=== PATIENT | male | born 1945 | race Caucasian/White ===

== ENCOUNTER 2017-01-05 21:42 | Emergency (ER) | payer OTHER ==
[2017-01-05 21:53] VITALS: BP 164/81
--- NOTE | 2017-01-05 22:23 | EDM.PDOC ---
ED HPI GENERAL MEDICAL PROBLEM - General Chief Complaint: Lower Extremity Injury/Pain Stated Complaint: LEG PAIN Time Seen by Provider: 01/05/17 22:12 - History of Present Illness INITIAL COMMENTS - FREE TEXT/NARRATIVE: 71-year-old male presents emergency room with leg pain. This is been going on for about a week and a half or so. Patient got bit by some sort of insect he thinks. He was seen at the [facility] in [place] started on antibiotic he doesn't know what. This was not getting better he was seen at the [facility] emergency room about a week ago started on another antibiotic he's finished this he's not sure which antibiotic it was. Patient denies any fevers chills. But he is having worsening pain around his left hip. Patient multiple suspected bug bites on his arms and is on his legs but somewhat on his left leg it seems to be bothering him the most it has a dark center to it. He is uncertain if it was a tick or spider the multiple sites certainly does not favor a tick, however multiple bites by multiple insects cannot be excluded either. Patient has not had any fevers or chills his pain is worse on the outside of his left hip at this point. He tried a couple of Advil a couple hours ago he has not had much improvement from this Left Hip Pain Score (Numeric/FACES): 8 - Related Data Allergies Allergy/AdvReac Type Severity Reaction Status Date / Time atenolol Allergy Hives Verified 01/05/17 21:53 bee venom protein (honey bee) Allergy Rash Verified 01/05/17 21:53 morphine Allergy Hives Verified 01/05/17 21:53 Home Meds: Home Meds Aspirin [Ecotrin] 81 mg PO DAILY 03/09/16 [History] Insulin Glargine,Hum.Rec.Anlog [Lantus Solostar] 50 units SQ BID 03/09/16 [ History] Metoprolol Succinate [Toprol XL 50mg] 50 mg PO DAILY 03/09/16 [History] Ranitidine [Zantac] 150 mg PO DAILY 03/09/16 [History] metFORMIN [Glucophage XR] 4 tab PO DAILY 03/09/16 [History] Doxycycline [Vibramycin] 100 mg PO BID #14 cap 01/06/17 [Rx] Past Medical History Cardiovascular History: Reports: Afib, CAD, Heart Failure, High Cholesterol, Hypertension, NC Respiratory History: Reports: SOB Gastrointestinal History: Reports: Colon Polyp Genitourinary History: Reports: BPH, Chronic Renal Insuffiency Psychiatric History: Reports: Anxiety Endocrine/Metabolic History: Reports: Diabetes, Type II - Past Surgical History Cardiovascular Surgical History: Reports: Other (See Below) Social & Family History - Family History Family Medical History: Noncontributory - Tobacco Use Smoking Status *Q: Never Smoker Second Hand Smoke Exposure: No - Recreational Drug Use Recreational Drug Use: No - Living Situation & Occupation Living situation: Reports: , Alone Occupation: Employed Review of Systems - Review of Systems Review Of Systems: See Below Constitutional: Reports: No Symptoms Eyes: Reports: No Symptoms Ears: Reports: No Symptoms Nose: Reports: No Symptoms Mouth/Throat: Reports: No Symptoms Respiratory: Reports: No Symptoms Cardiovascular: Reports: No Symptoms GI/Abdominal: Reports: No Symptoms Genitourinary: Reports: No Symptoms Musculoskeletal: Reports: Other (Significant for left hip pain) Skin: Reports: Other (He has multiple suspected insect bite or sting de jesus) Neurological: Reports: No Symptoms ED EXAM, GENERAL - Physical Exam Exam: See Below Exam Limited By: No Limitations General Appearance: Alert, No Apparent Distress Head: Atraumatic, Normocephalic Neck: Normal Inspection, Supple, Non-Tender, Full Range of Motion. No: Lymphadenopathy (L), Lymphadenopathy (R) Respiratory/Chest: No Respiratory Distress, Lungs Clear, Normal Breath Sounds Cardiovascular: Regular Rate, Rhythm, No Edema, No Murmur GI/Abdominal: Normal Bowel Sounds, Soft, Non-Tender Back Exam: Normal Inspection. No: CVA Tenderness (L), CVA Tenderness (R), Decreased Range of Motion, Muscle Spasm, Vertebral Tenderness Extremities: Other (Normal pulses bilateral lower extremities no obvious deformity. He really has no significant palpation abnormalities in the lower extremities below the knee on his left side other than some proximal medial pain and his in involving the medial head of the muscles he has no redness or swelling here the suspected insect bite of concern is lower and lateral. He has no evidence of redness or swelling here. At the greater trochanter he has some discomfort. This extends down about a third the way down his hip this does not cross over his leg towards the medial side of his knee and does not extend completely down to his knee on the lateral side.) Course - Vital Signs Last Recorded V/S: Last Vital Signs Temp 36.6 C 01/05/17 21:50 Pulse 93 01/05/17 21:50 Resp 16 01/05/17 21:50 BP 164/81 H 01/05/17 21:50 Pulse Ox 96 01/05/17 21:50 - Orders/Labs/Meds Labs: Laboratory Tests 01/05/17 01/05/17 01/05/17 Range/Units 23:35 23:35 23:35 WBC 9.40 H (4.23-9.07) K/mm3 RBC 4.55 L (4.63-6.08) M/mm3 Hgb 13.8 (13.7-17.5) gm/L Hct 39.2 L (40.1-51.0) % MCV 86.2 (79.0-92.2) fl MCH 30.3 (25.7-32.2) pg MCHC 35.2 (32.2-35.5) g/dl RDW Std Deviation 44.7 H (35.1-43.9) fL Plt Count 160 L (163-337) K/mm3 MPV 11.4 (9.4-12.3) fl Neutrophils % (Manual) 45 (40-60) % Band Neutrophils % 0 (0-10) % Lymphocytes % (Manual) 27 (20-40) % Atypical Lymphs % 9 % Monocytes % (Manual) 8 (2-10) % Eosinophils % (Manual) 9 H (0.8-7.0) % Basophils % (Manual) 2 H (0.2-1.2) Platelet Estimate Decreased Plt Morphology Comment See note Polychromasia 1+ slight Microcytosis 1+ slight Spherocytes Few RBC Morph Comment Not Reportable ESR 10 (0-15) mm/hr D-Dimer, Quantitative 0.21 (0.19-0.59) mg/L C-Reactive Protein (<1.0) mg/dL 01/05/17 Range/Units 23:35 WBC (4.23-9.07) K/mm3 RBC (4.63-6.08) M/mm3 Hgb (13.7-17.5) gm/L Hct (40.1-51.0) % MCV (79.0-92.2) fl MCH (25.7-32.2) pg MCHC (32.2-35.5) g/dl RDW Std Deviation (35.1-43.9) fL Plt Count (163-337) K/mm3 MPV (9.4-12.3) fl Neutrophils % (Manual) (40-60) % Band Neutrophils % (0-10) % Lymphocytes % (Manual) (20-40) % Atypical Lymphs % % Monocytes % (Manual) (2-10) % Eosinophils % (Manual) (0.8-7.0) % Basophils % (Manual) (0.2-1.2) Platelet Estimate Plt Morphology Comment Polychromasia Microcytosis Spherocytes RBC Morph Comment ESR (0-15) mm/hr D-Dimer, Quantitative (0.19-0.59) mg/L C-Reactive Protein < 0.2 (<1.0) mg/dL - Re-Assessments/Exams Free Text/Narrative Re-Assessment/Exam: 01/05/17 23:01 At this point I'm trying to get old records from [facility] to see if they can fill in some of the blanks as to what he's had done at this hour getting anything from the [facility] would be impossible. 01/05/17 23:22 Old records reviewed from [facility] he was seen there on 75. At that time he was taking Keflex and Bactrim DS he had a MRSA screen done after evaluation was done it was thought that his lower leg pain was due to some swelling there he was advised to start stocking therapy patient states this did not help the [facility] this and it is unclear to me if he was started on antibiotics again at that point. At this point patient has pain still in his lower leg away from where the bite is more in the medial calf. And he has is pain along the proximal iliotibial band. At this point we'll check d-dimer CBC inflammatory markers. 01/06/17 01:24 D-dimer inflammatory markers CBCs negative/unrevealing. Patient will be discharged is advised to use Tylenol however he says he doesn't do well on Tylenol. He is hypertensive Advil can be a little problem sedation minimizes dosing. He'll be started on doxycycline 100 mg twice a day for a week Departure - Departure Time of Disposition: 01:26 Disposition: Home, Self-Care 01 Clinical Impression: Trochanteric bursitis, left hip, Insect bite - Discharge Information Prescriptions: Doxycycline [Vibramycin] 100 mg PO BID #14 cap Forms: ED Department Discharge Additional Instructions: Return to the emergency room with any questions problems or worsening symptoms. He is given a prescription for doxycycline take one twice daily for 1 week and until all the medicine is gone. Avoid sun exposure while taking this medication. Advil one every 8 hours with food. Drink plenty of fluids with this. [facility] for recheck your blood pressure and to see how you are doing.
== END 2017-01-06 01:40 | disposition home or self-care (01) ==
LOC: JD.ED 21:42
DX: S70.262A Insect bite (nonvenomous), left hip, initial encounter (principal); M70.62 Trochanteric bursitis, left hip; I48.91 Unspecified atrial fibrillation; E11.22 Type 2 diabetes mellitus with diabetic chronic kidney disease; I13.0 Hypertensive heart and chronic kidney disease with heart failure and stage 1 through stage 4 chronic kidney disease, or unspecified chronic kidney disease; I50.9 Heart failure, unspecified; N18.9 Chronic kidney disease, unspecified; I25.2 Old myocardial infarction; Z91.030 Bee allergy status; Z79.4 Long term (current) use of insulin; Z79.82 Long term (current) use of aspirin; Z79.84 Long term (current) use of oral hypoglycemic drugs; I25.10 Atherosclerotic heart disease of native coronary artery without angina pectoris; W57.XXXA Bitten or stung by nonvenomous insect and other nonvenomous arthropods, initial encounter; Z88.5 Allergy status to narcotic agent; Z88.8 Allergy status to other drugs, medicaments and biological substances
CPT/HCPCS: 36415; 85025; 85379; 85652; 86140; 99283; 99284

== ENCOUNTER 2019-05-02 08:05 | Emergency (ER) | payer OTHER, MEDICARE ==
[2019-05-02 08:14] VITALS: BP 188/95; PULSE 88
--- NOTE | 2019-05-02 08:35 | EDM.PDOC ---
ED HPI GENERAL MEDICAL PROBLEM - General Chief Complaint: Gastrointestinal Problem Stated Complaint: CONSTIPATION Time Seen by Provider: 05/02/19 08:15 Source of Information: Reports: Patient History Limitations: Reports: No Limitations - History of Present Illness INITIAL COMMENTS - FREE TEXT/NARRATIVE: Mr. Santillan is a pleasant 73-year-old man who states that he was recently hospitalized at [facility] on the of this month, and again on the , for a "esophageal blockage". He states that he was scoped, and that nothing was found, but there was some sort of a narrowing. I believe the patient is describing a Schatzki ring. He was also found to be in atrial fibrillation. He was started on Eliquis, carvedilol, and pantoprazole. The patient now presents to the ED stating that he has been constipated since 18 :00 last night. While he purchased a stool softener, he did not take it, and has not taken any other medications to try to treat his symptoms prior to coming to the ED. He believes that his new medications are responsible for his constipation, as he does not ordinarily suffer from constipation. The patient also mentioned, in passing, that he has been only able to dribble urine since 18 :00 last night, as well. He has a history of BPH, treated with finasteride. He reports chills, but has not had a fever. He has had nausea, but no emesis. The patient last ate around 05:00. The patient's PCP is at the [place], although he also sees Dr. Ernie Underwood, in [place]. His Urologist is Dr. Jackie Wolff, at the [facility]. He received an influenza vaccine yesterday. Abdomen Pain Score (Numeric/FACES): 5 - Related Data Allergies Allergy/AdvReac Type Severity Reaction Status Date / Time atenolol Allergy Hives Verified 05/02/19 08:18 bee venom protein (honey bee) Allergy Rash Verified 05/02/19 08:18 insulin isophane (NPH) Allergy Cannot Verified 05/02/19 08:18 [From Novolin 70/30 U-100 Remember Insulin] insulin regular Allergy Cannot Verified 05/02/19 08:18 [From Novolin 70/30 U-100 Remember Insulin] latex Allergy Rash Verified 05/02/19 08:18 morphine Allergy Hives Verified 11/28/19 08:18 quinapril [From Accupril] Allergy Rash Verified 05/02/19 08:18 atorvastatin [From Lipitor] AdvReac Confusion Verified 05/02/19 08:18 levofloxacin AdvReac Hallucinati Verified 05/02/19 08:18 ons lisinopril AdvReac Confusion Verified 05/02/19 08:18 lorazepam [From Ativan] AdvReac Hallucinati Verified 05/02/19 08:18 ons omeprazole AdvReac Confusion Verified 05/02/19 08:18 terazosin AdvReac Hallucinati Verified 05/02/19 08:18 ons Home Meds: Home Meds Aspirin [Ecotrin EC] 325 mg PO DAILY 03/09/16 [History] Insulin Glargine,Hum.Rec.Anlog [Lantus Solostar] 70 units SQ BID 03/09/16 [ History] Cholecalciferol (Vitamin D3) [Vitamin D3] 2,000 units PO DAILY 02/08/18 [History ] Colestipol HCl 2 tab PO BID 02/08/18 [History] Finasteride [Proscar] 5 mg PO DAILY 02/08/18 [History] HCTZ/Triamterene [Maxzide 50-75 MG] 0.5 tab PO DAILY 02/08/18 [History] Ibuprofen 400 mg PO BID PRN 02/08/18 [History] Losartan [Cozaar] 50 mg PO DAILY 02/08/18 [History] Pantoprazole Sodium [Protonix] 40 mg PO DAILY 02/08/18 [History] Simvastatin [Zocor] 20 mg PO BEDTIME #20 tablet 02/09/18 [Rx] Albuterol Sulfate [Albuterol Sulfate Hfa] 2 puff INH Q4H PRN 05/02/19 [History] Alogliptin Benzoate [Alogliptin] 12.5 mg PO DAILY 05/02/19 [History] Apixaban [Eliquis] 5 mg PO BID 05/02/19 [History] Budesonide [Pulmicort] 1 puff INH BID 05/02/19 [History] Multivitamin [Multivitamins] 1 cap PO DAILY 05/02/19 [History] Seminole-3/DHA/Epa/Fish Oil [Seminole-3 Fish Oil 1,000 MG Sfgl] 1,000 mg PO DAILY [History] Simvastatin 40 mg PO DAILY 05/02/19 [History] carvediloL [Carvedilol] 6.25 mg PO BID 05/02/19 [History] metFORMIN HCl [Metformin HCl] 1,000 mg PO BID 05/02/19 [History] Past Medical History Cardiovascular History: Reports: Afib (paroxysmal), CAD, Heart Failure, High Cholesterol, Hypertension, NC (x 6 - medical tx only) Gastrointestinal History: Reports: Colon Polyp, GERD Genitourinary History: Reports: BPH, Chronic Renal Insuffiency Musculoskeletal History: Reports: Arthritis Psychiatric History: Reports: Anxiety Endocrine/Metabolic History: Reports: Diabetes, Type II, Obesity/BMI 30+ - Infectious Disease History Infectious Disease History: Reports: Chicken Pox - Past Surgical History HEENT Surgical History: Reports: Naso-Sinus Surgery (Rhinoplasty) Cardiovascular Surgical History: Reports: Other (See Below) (Repair of "hole in my heart" 1999) GI Surgical History: Reports: Appendectomy, Cholecystectomy (1993), Colonoscopy (x 4), EGD (x 1) Social & Family History - Family History Family Medical History: Noncontributory - Caffeine Use Caffeine Use: Reports: None - Living Situation & Occupation Living situation: Reports: , Alone Occupation: Employed ED ROS GENERAL - Review of Systems Review Of Systems: Comprehensive ROS is negative, except as noted in HPI. Musculoskeletal: Reports: Back Pain ED EXAM, GI/ABD - Physical Exam Exam: See Below Exam Limited By: No Limitations General Appearance: Alert, WD/WN, No Apparent Distress Eyes: Bilateral: Normal Appearance, EOMI Ears: Normal External Exam, Hearing Grossly Normal Nose: Normal Inspection Throat/Mouth: Normal Inspection, Normal Lips, Normal Voice, No Airway Compromise Head: Atraumatic, Normocephalic Neck: Normal Inspection, Full Range of Motion Respiratory/Chest: No Respiratory Distress, Lungs Clear, Normal Breath Sounds, No Accessory Muscle Use Cardiovascular: Normal Peripheral Pulses, Regular Rate, Rhythm, No Gallop, No JVD, No Murmur, No Rub GI/Abdominal Exam: Normal Bowel Sounds, Soft, No Organomegaly, No Distention, No Abnormal Bruit, No Mass, Tender (Left lower quadrant only. Nontender elsewhere.) (Male) Exam: Deferred Rectal (Males) Exam: Deferred Back Exam: Normal Inspection, Full Range of Motion, NT Extremities: Normal Range of Motion, Normal Capillary Refill, Other (2+ pitting pretibial edema bilaterally) Neurological: Alert, Oriented, Normal Cognition, No Motor/Sensory Deficits Psychiatric: Normal Affect Skin Exam: Warm, Dry, Intact, Normal Color, No Rash Course - Vital Signs Last Recorded V/S: Last Vital Signs Temp 36.6 C 05/02/19 08:12 Pulse 88 05/02/19 08:11 Resp 19 05/02/19 08:11 BP 188/95 H 05/02/19 08:11 Pulse Ox 94 L 05/02/19 08:11 - Orders/Labs/Meds Orders: Active Orders 24 hr Category Date Time Status Bladder Scan [RC] ASDIRECTED Care 05/02/19 08:27 Active Abdomen Pelvis w Cont [CT] Stat Exams 05/02/19 09:22 Taken KUB [Abdomen 1V Flat] [CR] Stat Exams 05/02/19 08:28 Taken Sodium Chloride 0.9% [Normal Saline] 1,000 ml Med 05/02/19 09:30 Active IV ASDIRECTED Sodium Chloride 0.9% [Saline Flush] Med 05/02/19 10:00 Active 10 ml FLUSH ASDIRECTED Medication Orders Sodium Chloride (Normal Saline) 1,000 mls @ 100 mls/hr IV ASDIRECTED ZACH Last Admin: 05/02/19 09:36 Dose: 100 mls/hr Sodium Chloride (Saline Flush) 10 ml FLUSH ASDIRECTED ZACH Last Admin: 05/02/19 11:01 Dose: 10 ml Labs: Laboratory Tests 05/02/19 05/02/19 05/02/19 Range/Units 08:28 09:36 09:36 WBC 10.04 H (4.23-9.07) K/mm3 RBC 4.78 (4.63-6.08) M/mm3 Hgb 13.7 (13.7-17.5) gm/dl Hct 41.7 (40.1-51.0) % MCV 87.2 (79.0-92.2) fl MCH 28.7 (25.7-32.2) pg MCHC 32.9 (32.2-35.5) g/dl RDW Std Deviation 46.1 H (35.1-43.9) fL Plt Count 165 (163-337) K/mm3 MPV 11.3 (9.4-12.3) fl Neutrophils % (Manual) 80 H (40-60) % Band Neutrophils % 0 (0-10) % Lymphocytes % (Manual) 16 L (20-40) % Atypical Lymphs % 0 % Monocytes % (Manual) 2 (2-10) % Eosinophils % (Manual) 2 (0.8-7.0) % Basophils % (Manual) 0 L (0.2-1.2) Platelet Estimate Adequate RBC Morph Comment Normal Sodium 138 (136-145) mEq/L Potassium 4.8 (3.5-5.1) mEq/L Chloride 102 (98-107) mEq/L Carbon Dioxide 27 (21-32) mEq/L Anion Gap 13.8 (5-15) BUN 24 H (7-18) mg/dL Creatinine 1.4 H (0.7-1.3) mg/dL Est Cr Clr Drug Dosing 54.69 mL/min Estimated GFR (MDRD) 50 (>60) mL/min BUN/Creatinine Ratio 17.1 (14-18) Glucose 151 H (83-115) mg/dL POC Glucose (83-110) mg/dL Calcium 10.0 (8.5-10.1) mg/dL Total Bilirubin 0.8 (0.2-1.0) mg/dL AST 47 H (15-37) U/L ALT 51 (16-63) U/L Alkaline Phosphatase 79 (46-116) U/L Total Protein 7.3 (6.4-8.2) g/dl Albumin 3.8 (3.4-5.0) g/dl Globulin 3.5 gm/dL Albumin/Globulin Ratio 1.1 (1-2) Urine Color Yellow (Yellow) Urine Appearance Clear (Clear) Urine pH 6.5 (5.0-8.0) Ur Specific [place] 1.015 (1.005-1.030) Urine Protein Negative (Negative) Urine Glucose (UA) Negative (Negative) Urine Ketones Negative (Negative) Urine Occult Blood Trace-lysed H (Negative) Urine Nitrite Negative (Negative) Urine Bilirubin Negative (Negative) Urine Urobilinogen 0.2 (0.2-1.0) Ur Leukocyte Esterase Negative (Negative) Urine RBC 5-10 H (0-5) /hpf Urine WBC 0-5 (0-5) /hpf Ur Squamous Epith Cells 0-5 (0-5) /hpf Amorphous Sediment Rare H (NOT SEEN) /hpf Urine Bacteria Few (FEW) /hpf Urine Mucus Not Reportable 05/02/19 Range/Units 12:08 WBC (4.23-9.07) K/mm3 RBC (4.63-6.08) M/mm3 Hgb (13.7-17.5) gm/dl Hct (40.1-51.0) % MCV (79.0-92.2) fl MCH (25.7-32.2) pg MCHC (32.2-35.5) g/dl RDW Std Deviation (35.1-43.9) fL Plt Count (163-337) K/mm3 MPV (9.4-12.3) fl Neutrophils % (Manual) (40-60) % Band Neutrophils % (0-10) % Lymphocytes % (Manual) (20-40) % Atypical Lymphs % % Monocytes % (Manual) (2-10) % Eosinophils % (Manual) (0.8-7.0) % Basophils % (Manual) (0.2-1.2) Platelet Estimate RBC Morph Comment Sodium (136-145) mEq/L Potassium (3.5-5.1) mEq/L Chloride (98-107) mEq/L Carbon Dioxide (21-32) mEq/L Anion Gap (5-15) BUN (7-18) mg/dL Creatinine (0.7-1.3) mg/dL Est Cr Clr Drug Dosing mL/min Estimated GFR (MDRD) (>60) mL/min BUN/Creatinine Ratio (14-18) Glucose (83-115) mg/dL POC Glucose 95 (83-110) mg/dL Calcium (8.5-10.1) mg/dL Total Bilirubin (0.2-1.0) mg/dL AST (15-37) U/L ALT (16-63) U/L Alkaline Phosphatase (46-116) U/L Total Protein (6.4-8.2) g/dl Albumin (3.4-5.0) g/dl Globulin gm/dL Albumin/Globulin Ratio (1-2) Urine Color (Yellow) Urine Appearance (Clear) Urine pH (5.0-8.0) Ur Specific [place] (1.005-1.030) Urine Protein (Negative) Urine Glucose (UA) (Negative) Urine Ketones (Negative) Urine Occult Blood (Negative) Urine Nitrite (Negative) Urine Bilirubin (Negative) Urine Urobilinogen (0.2-1.0) Ur Leukocyte Esterase (Negative) Urine RBC (0-5) /hpf Urine WBC (0-5) /hpf Ur Squamous Epith Cells (0-5) /hpf Amorphous Sediment (NOT SEEN) /hpf Urine Bacteria (FEW) /hpf Urine Mucus Meds: Medications Generic Name Dose Route Start Last Admin Trade Name Freq PRN Reason Stop Dose Admin Sodium Chloride 1,000 mls @ 100 mls/hr 05/02/19 09:30 05/02/19 09:36 Normal Saline IV 100 mls/hr ASDIRECTED ZACH Administration Sodium Chloride 10 ml 05/02/19 10:00 05/02/19 11:01 Saline Flush FLUSH 10 ml ASDIRECTED ZACH Administration Discontinued Medications Generic Name Dose Route Start Last Admin Trade Name Freq PRN Reason Stop Dose Admin Diatrizoate Meglum/Diatrizoate Sod 120 ml 05/02/19 09:51 05/02/19 11:01 Gastrografin 37% PO 05/02/19 09:52 120 ml ONETIME ONE Administration Iopamidol 100 ml 05/02/19 09:51 05/02/19 11:01 Isovue-300 (61%) IVPUSH 05/02/19 09:52 100 ml ONETIME ONE Administration Ondansetron HCl 4 mg 05/02/19 11:39 05/02/19 11:56 Zofran IVPUSH 05/02/19 11:40 4 mg ONETIME ONE Administration - Re-Assessments/Exams Free Text/Narrative Re-Assessment/Exam: 05/02/19 08:29 As per the HPI, the patient is complaining of constipation, but also reports that he is only able to dribble urine since 18:00 last evening. On examination, he has some tenderness to the left lower quadrant only. I have ordered a urinalysis by clean catch, to be followed by a post void bladder scan. I have also ordered a KUB to dilate for constipation. If the patient does not have a significant amount of stool in his colon, I will need to order additional workup to evaluate for acute diverticulitis. 05/02/19 08:46 The patient's postvoid bladder scan found 109 mL of retained urine. 05/02/19 09:23 The patient's urinalysis demonstrates trace occult blood and 5-10 RBCs, but is otherwise unremarkable. The KUB appears to demonstrate some stool in the cecum, but no other significant stool seen elsewhere. Nonspecific bowel gas pattern. Cholecystectomy giovanni noted in the right upper quadrant. Formal read per the Radiologist pending. Based on the above findings, I have ordered some blood work and a CT scan of the abdomen and pelvis with oral and IV contrast, primarily to evaluate for diverticulitis, but also to rule out a left-sided ureterolith. 05/02/19 10:51 The patient's CBC is remarkable for a WBC count mildly elevated at 10.04, but with 0% bandemia and 80% neutrophilia. The remainder of his CBC is unremarkable. His CMP is remarkable for a BUN/Cr elevated at 24/1.4, and a blood glucose elevated at 151, with the remainder of his CMP being unremarkable. The patient's BUN/Cr were 19/1.3 on 02/09/2018; the patient has a known history of chronic renal insufficiency. 05/02/19 11:55 Notified by Adrienne IRIZARRY that the patient had a large bowel movement and now feels much better. He told her that he is ready to go home, however, I do not yet have the CT results. 05/02/19 12:10 CT of the abdomen and pelvis with oral and IV contrast is read by vRreina as: 1. Bilateral pleural effusions. 2. Opacities in both lower lobes may represent mild atelectasis or pneumonia. 3. The prostate is enlarged, greater than 5 cm. Recommend urology consult. 4. The bladder wall measures 9 mm. This is nonspecific and may represent inflammation or infection. Neoplastic process and neurogenic bladder are included in the differential. 5. Hepatomegaly 19 cm. 6. Borderline splenomegaly 13.8 cm. 05/02/19 12:25 Test results discussed with the patient. I clarified with the patient that he has not been coughing recently, and does not have dyspnea. He has not had a fever recently, and is afebrile here. Further, he is saturating 94% on room air , therefore my suspicion for pneumonia is extremely low, and I am not recommending antibiotics. Of interest, the CT scan, which was obtained before the patient had a large bowel movement, and consistent with the KUB, does not indicate a significant amount of stool, however, the patient reiterated that he is feeling all better following a large bowel movement. I will discharge the patient home with the recommendation that he follow-up with his Urologist at the [facility]. because of today's IV contrast, he will need to withhold his metformin for 48 hours. Departure - Departure Time of Disposition: 12:25 Disposition: Home, Self-Care 01 Condition: Good Clinical Impression: Constipation, Chronic renal insufficiency BPH (benign prostatic hyperplasia) Qualifiers: Lower urinary tract symptom presence: unspecified whether lower urinary tract symptoms present Qualified Code(s): N40.0 - Benign prostatic hyperplasia without lower urinary tract symptoms - Discharge Information *PRESCRIPTION DRUG MONITORING PROGRAM REVIEWED*: Not Applicable *COPY OF PRESCRIPTION DRUG MONITORING REPORT IN PATIENT MARY ANNE: Not Applicable Referrals: Ernie Underwood MD [Ordering Only Provider] - Amira Goff MD [Primary Care Provider] - Jackie Wolff MD [Ordering Only Provider] - Forms: ED Department Discharge Additional Instructions: You were seen in the emergency room after developing constipation and difficulty urinating last evening. Workup in the ER included blood work, a urinalysis, a postvoid bladder scan, an x-ray of your abdomen, and a CT scan of your abdomen and pelvis with oral and IV contrast. The CT scan found that your prostate to be enlarged at 5 cm, and your bladder wall thickened at 9 mm. Your bloodwork redemonstrated that you have chronic renal insufficiency, with a BUN/Cr of 24/1.4. The remainder of your workup was unremarkable. Your symptoms resolved following a large bowel movement. We recommend that you stay adequately hydrated. You should not take your metformin for 48 hours. You may resume your other medications, however. We recommend that you follow-up with your Urologist, Dr. Jackie Wolff, at the [facility], at the next available appointment. Bring these discharge instructions with you when you see him. If any other problems, please do not hesitate to return to the ER. - My Orders Last 24 Hours: My Active Orders 05/02/19 08:27 Bladder Scan [RC] ASDIRECTED 05/02/19 08:28 KUB [Abdomen 1V Flat] [CR] Stat 05/02/19 09:22 Abdomen Pelvis w Cont [CT] Stat 05/02/19 09:30 Sodium Chloride 0.9% [Normal Saline] 1,000 ml IV ASDIRECTED 05/02/19 10:00 Sodium Chloride 0.9% [Saline Flush] 10 ml FLUSH ASDIRECTED - Assessment/Plan Last 24 Hours: My Active Orders 05/02/19 08:27 Bladder Scan [RC] ASDIRECTED 05/02/19 08:28 KUB [Abdomen 1V Flat] [CR] Stat 05/02/19 09:22 Abdomen Pelvis w Cont [CT] Stat 05/02/19 09:30 Sodium Chloride 0.9% [Normal Saline] 1,000 ml IV ASDIRECTED 05/02/19 10:00 Sodium Chloride 0.9% [Saline Flush] 10 ml FLUSH ASDIRECTED
[2019-05-02] MEDS ORDERED: Sodium Chloride 0.9% 1,000 ML IV SCH (09:30)
[2019-05-02] MEDS ORDERED: Diatrizoate Meglumine/Diatrizoate Sodium 37% 120 ML Bottle PO ONE (09:51)
[2019-05-02] MEDS ORDERED: Iopamidol 612 MG/ML 100 ML Bottle IVPUSH ONE (09:51)
[2019-05-02] MEDS ORDERED: Sodium Chloride 0.9% 10 ML Syringe FLUSH SCH (10:00)
[2019-05-02] MEDS ORDERED: Ondansetron 4 MG/2 ML SDV IVPUSH ONE (11:39)
--- NOTE | 2019-05-03 09:09 | CT ---
CT abdomen and pelvis Technique: Multiple axial sections were obtained from above the dome of the diaphragm inferiorly through the pubic symphysis. Intravenous and oral contrast has been given. Comparison: Prior CT abdomen and pelvis exam of 03/09/16. Findings: Small bilateral pleural effusions are noted. Very minimal compressive atelectasis is seen within the right lung base. Liver contains no focal abnormality. Liver is slightly diminished in density compatible with fatty infiltration. Liver is slightly generous in size which is felt to be incidental. Spleen measures at the upper limits of normal at 13.4 cm. This finding is felt to be incidental. No focal abnormality is seen within the spleen. Adrenal glands show no nodule. Pancreas shows no discrete abnormality. Surgical clips are seen from prior cholecystectomy. Kidneys show symmetric contrast enhancement without hydronephrosis or mass. Aorta shows no aneurysm. No retroperitoneal adenopathy or mesenteric abnormalities are seen. Mild diverticuli are seen within the descending and sigmoid colon without inflammatory change of diverticulitis. Bladder wall is thickened which is concentric in size and may relate to bladder outlet obstruction. Prostate gland is mildly enlarged. Surgical anastomotic sutures are seen within the right side of the colon. Appendix not visualized. No free fluid or inflammatory change is seen. Impression: 1. Small bilateral pleural effusions with mild compressive atelectasis within the right lung base. 2. Fatty infiltration within the liver with mild colonic diverticula. 3. Bladder wall thickening most likely related to an element of bladder outlet obstruction as findings are concentric. Prostate gland is also enlarged. 4. No acute abnormality is appreciated. Diagnostic code #2 This report was dictated in [place] Standard Time Mildly disagree with preliminary report issued by [facility] (please see above) ([facility] report finalized on 04/01/19, 12:57 PM Central Time)
--- NOTE | 2019-05-03 09:09 | CR ---
Abdomen: Supine view of the abdomen was obtained. Comparison: No prior abdominal x-rays available. Surgical clips seen from prior cholecystectomy. No soft tissue abnormality is appreciated. Bowel gas pattern is normal. Blunting of the right lateral costophrenic angle is seen compatible with small pleural effusion. Mild degenerative endplate spurring is noted within the spine. Impression: 1. Small right-sided pleural effusion. 2. Nothing acute is otherwise seen on supine abdominal x-ray. Diagnostic code #2 This report was dictated in [place] Standard Time
== END 2019-05-02 12:52 | disposition home or self-care (01) ==
LOC: JD.ED 08:05
DX: K59.00 Constipation, unspecified (principal); E11.22 Type 2 diabetes mellitus with diabetic chronic kidney disease; I12.9 Hypertensive chronic kidney disease with stage 1 through stage 4 chronic kidney disease, or unspecified chronic kidney disease; N18.9 Chronic kidney disease, unspecified; N40.0 Benign prostatic hyperplasia without lower urinary tract symptoms; I48.0 Paroxysmal atrial fibrillation; I25.10 Atherosclerotic heart disease of native coronary artery without angina pectoris; E78.00 Pure hypercholesterolemia, unspecified; I25.2 Old myocardial infarction; K21.9 Gastro-esophageal reflux disease without esophagitis; E66.9 Obesity, unspecified; Z68.33 Body mass index [BMI] 33.0-33.9, adult; Z79.899 Other long term (current) drug therapy; Z88.5 Allergy status to narcotic agent; Z88.8 Allergy status to other drugs, medicaments and biological substances; Z88.1 Allergy status to other antibiotic agents; Z91.030 Bee allergy status; Z91.040 Latex allergy status; Z79.82 Long term (current) use of aspirin; Z79.4 Long term (current) use of insulin; Z79.01 Long term (current) use of anticoagulants
CPT/HCPCS: 36415; 51798; 74018; 74177; 80053; 81001; 82962; 85007; 85027; 96361; 96374; 99284; J2405; J7040; Q9963; Q9967; 99283; J7030

== ENCOUNTER 2019-09-01 19:56 | Emergency (ER) | payer OTHER, MEDICARE ==
[2019-09-01 20:07] VITALS: BP 158/85; PULSE 72
[2019-09-01] MEDS ORDERED: Bacitracin Oint 15 GM Tube TOP ONE (20:36)
--- NOTE | 2019-09-01 20:43 | EDM.PDOC ---
ED HPI GENERAL MEDICAL PROBLEM - General Chief Complaint: Bite:Animal, Insect Stated Complaint: BITE ON GENTIALS POSSIBLE SPIDER Time Seen by Provider: 09/01/19 20:08 Source of Information: Reports: Patient, RN Notes Reviewed History Limitations: Reports: No Limitations - History of Present Illness INITIAL COMMENTS - FREE TEXT/NARRATIVE: Patient is a 74-year-old male who presents to the ED for the evaluation of some lesions on his legs and groin area. The patient believes that he has insect bites to his legs, and his groin area. Patient notes that these started about 1 month ago. He notes that they are not itchy or painful, he just does not know what is causing these issues. He has been using some triple antibiotic biotic ointment to the lesions. None are open, or weeping. He has a lesion on his mid left pace, mid right pace, left groin area, and right groin area. The groin area is where he is using the triple antibiotic ointment. He states that this does help a little bit but not too much. Patient is a diabetic, and has a history of CHF, he did appreciate some mild swelling on his ankles as well. - Related Data Allergies Allergy/AdvReac Type Severity Reaction Status Date / Time atenolol Allergy Hives Verified 09/01/19 20:07 bee venom protein (honey bee) Allergy Rash Verified 09/01/19 20:07 insulin isophane (NPH) Allergy Cannot Verified 09/01/19 20:07 [From Novolin 70/30 U-100 Remember Insulin] insulin regular Allergy Cannot Verified 09/01/19 20:07 [From Novolin 70/30 U-100 Remember Insulin] latex Allergy Rash Verified 09/01/19 20:07 morphine Allergy Hives Verified 09/01/19 20:07 quinapril [From Accupril] Allergy Rash Verified 09/01/19 20:07 atorvastatin [From Lipitor] AdvReac Confusion Verified 09/01/19 20:07 levofloxacin AdvReac Hallucinati Verified 09/01/19 20:07 ons lisinopril AdvReac Confusion Verified 09/01/19 20:07 lorazepam [From Ativan] AdvReac Hallucinati Verified 09/01/19 20:07 ons omeprazole AdvReac Confusion Verified 09/01/19 20:07 terazosin AdvReac Hallucinati Verified 09/01/19 20:07 ons Home Meds: Home Meds Aspirin [Ecotrin EC] 325 mg PO DAILY 03/09/16 [History] Insulin Glargine,Hum.Rec.Anlog [Lantus Solostar] 70 units SQ BID 03/09/16 [ History] Cholecalciferol (Vitamin D3) [Vitamin D3] 2,000 units PO DAILY 02/08/18 [History ] Colestipol HCl 2 tab PO BID 02/08/18 [History] Finasteride [Proscar] 5 mg PO DAILY 02/08/18 [History] HCTZ/Triamterene [Maxzide 50-75 MG] 0.5 tab PO DAILY 02/08/18 [History] Ibuprofen 400 mg PO BID PRN 02/08/18 [History] Losartan [Cozaar] 50 mg PO DAILY 02/08/18 [History] Pantoprazole Sodium [Protonix] 40 mg PO DAILY 02/08/18 [History] Simvastatin [Zocor] 20 mg PO BEDTIME #20 tablet 02/09/18 [Rx] Albuterol Sulfate [Albuterol Sulfate Hfa] 2 puff INH Q4H PRN 05/02/19 [History] Alogliptin Benzoate [Alogliptin] 12.5 mg PO DAILY 05/02/19 [History] Apixaban [Eliquis] 5 mg PO BID 05/02/19 [History] Budesonide [Pulmicort] 1 puff INH BID 05/02/19 [History] Multivitamin [Multivitamins] 1 cap PO DAILY 05/02/19 [History] [place]-3/DHA/Epa/Fish Oil [[place]-3 Fish Oil 1,000 MG Sfgl] 1,000 mg PO DAILY [History] Simvastatin 40 mg PO DAILY 05/02/19 [History] carvediloL [Carvedilol] 6.25 mg PO BID 05/02/19 [History] metFORMIN HCl [Metformin HCl] 1,000 mg PO BID 05/02/19 [History] Past Medical History HEENT History: Reports: Impaired Vision Cardiovascular History: Reports: Afib, CAD, Heart Failure, High Cholesterol, Hypertension, [place] Respiratory History: Reports: SOB Gastrointestinal History: Reports: Colon Polyp, GERD Genitourinary History: Reports: BPH, Chronic Renal Insuffiency Musculoskeletal History: Reports: Arthritis Psychiatric History: Reports: Anxiety Other Psychiatric History: has support persons to call when he needs help Endocrine/Metabolic History: Reports: Diabetes, Type II, Obesity/BMI 30+ - Infectious Disease History Infectious Disease History: Reports: Chicken Pox, Measles, Mumps - Past Surgical History HEENT Surgical History: Reports: Naso-Sinus Surgery Cardiovascular Surgical History: Reports: Other (See Below) Other Cardiovascular Surgeries/Procedures: sx for hole in his heart GI Surgical History: Reports: Appendectomy, Cholecystectomy, Colonoscopy, EGD Social & Family History - Family History Family Medical History: Noncontributory - Tobacco Use Smoking Status *Q: Never Smoker - Caffeine Use Caffeine Use: Reports: Coffee, Soda, Tea - Recreational Drug Use Recreational Drug Use: No - Living Situation & Occupation Living situation: Reports: , Alone Occupation: Employed ED ROS GENERAL - Review of Systems Review Of Systems: Comprehensive ROS is negative, except as noted in HPI. ED EXAM, ANIMAL BITE - Physical Exam Exam: See Below Exam Limited By: No Limitations General Appearance: Alert, WD/WN, No Apparent Distress Eye Exam: Bilateral Eye: EOMI, Normal Inspection, PERRL Respiratory/Chest: No Respiratory Distress, Lungs Clear, Normal Breath Sounds, No Accessory Muscle Use, Chest Non-Tender Cardiovascular: Normal Peripheral Pulses, Regular Rate, Rhythm, No Murmur, Other (mild 1+ pitting edema to bilateral legs) Peripheral Pulses: 3+: Dorsalis Pedis (L), Dorsalis Pedis (R) Neurological: Alert, Oriented, Normal Cognition, No Motor/Sensory Deficits Psychiatric: Normal Affect, Normal Mood Skin Exam: Normal Color, Warm/Dry, Other (Multiple lesions: Lesion 1- left mid pace, medial aspect, slightly depressable ulcerated center, darker in color that surrounding skin, not itchy, crusty or scaling. Lesion 2-R mid pace, similar to L pace but smaller. Lesion 3- Left groin area, nummular erythemaous border w center scab and some scaling noted. lesion 4- R groin, similar to L groin only smaller) Front/Back Body Diagram: 1 - lesion 1 2 - lesion 2 3 - lesion 3 4 - lesion 4 Course - Vital Signs Last Recorded V/S: Last Vital Signs Temp 98.6 F 09/01/19 20:05 Pulse 72 09/01/19 20:05 Resp 19 09/01/19 20:05 BP 158/85 H 09/01/19 20:05 Pulse Ox 95 09/01/19 20:05 - Orders/Labs/Meds Orders: Active Orders 24 hr Category Date Time Status Bacitracin [Bacitracin Oint] Med 09/01/19 20:36 Once See Dose Instructions TOP ONETIME ONE - Re-Assessments/Exams Free Text/Narrative Re-Assessment/Exam: 09/01/19 20:44 Patient presents to the ED for some concerning lesions on his skin. I unfortunately am not an entomologist, so I cannot say that these are consistent with spider bites, as there are no definitive puncture wounds. The lesions on his leg were reviewed with Dr. Duong, and he notes these to be common diabetic skin changes (necrobiosis lipoidica diabeticorum) that do not require emergent management at today's visit, and he also suggests the use of Bacitracin to the groin areas to see if this helps, and have him follow up with his PCP. 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 The areas on your leg are most likely due to diabetic skin changes, a condition called necrobiosis lipoidica diabeticorum. Unfortunately there is not a lot that can be done to these areas for treatment purposes. The lesions on your groin do appear to be somewhat infected, please use the bacitracin ointment to the areas as needed, to see if this does not help clear them up. Highly recommend you have these areas reevaluated by your primary care provider sometime in the next week or 2, to make sure they are getting better as expected. Unfortunately it is not made obviously apparent that these are due to any sort of bug or other critter, unless you can find what you might suspect this to be from. Please return to the ER at any time if symptoms seem to change or worsen. Sepsis Event Note - Evaluation Sepsis Screening Result: No Definite Risk - Focused Exam Vital Signs: Vital Signs Temp Pulse Resp BP Pulse Ox 09/01/19 20:05 98.6 F 72 19 158/85 H 95 Date Exam was Performed: 09/01/19 Time Exam was Performed: 20:37 - My Orders Last 24 Hours: My Active Orders 09/01/19 20:36 Bacitracin [Bacitracin Oint] See Dose Instructions TOP ONETIME ONE - Assessment/Plan Last 24 Hours: My Active Orders 09/01/19 20:36 Bacitracin [Bacitracin Oint] See Dose Instructions TOP ONETIME ONE
== END 2019-09-01 21:00 | disposition home or self-care (01) ==
LOC: JD.ED 19:56
DX: E11.620 Type 2 diabetes mellitus with diabetic dermatitis (principal); E11.22 Type 2 diabetes mellitus with diabetic chronic kidney disease; I13.0 Hypertensive heart and chronic kidney disease with heart failure and stage 1 through stage 4 chronic kidney disease, or unspecified chronic kidney disease; N18.9 Chronic kidney disease, unspecified; I50.9 Heart failure, unspecified; K21.9 Gastro-esophageal reflux disease without esophagitis; I48.91 Unspecified atrial fibrillation; I25.2 Old myocardial infarction; M19.90 Unspecified osteoarthritis, unspecified site; F41.9 Anxiety disorder, unspecified; E66.9 Obesity, unspecified; Z68.31 Body mass index [BMI] 31.0-31.9, adult; Z79.01 Long term (current) use of anticoagulants; Z91.030 Bee allergy status; Z79.4 Long term (current) use of insulin; Z88.5 Allergy status to narcotic agent; Z91.040 Latex allergy status; Z88.8 Allergy status to other drugs, medicaments and biological substances; Z79.82 Long term (current) use of aspirin; Z79.899 Other long term (current) drug therapy
CPT/HCPCS: 99282; A9270

== ENCOUNTER 2020-02-15 00:26 | Emergency (ER) | payer OTHER, MEDICARE ==
[2020-02-15 00:36] VITALS: BP 157/93; PULSE 71
[2020-02-15] MEDS ORDERED: Alum Hydrox/Mag Hydrox/Simeth 30 ML, Lidocaine 2% 15 ML PO ONE ×2 (00:49)
--- NOTE | 2020-02-15 00:55 | EDM.PDOC ---
ED HPI GENERAL MEDICAL PROBLEM - General Chief Complaint: ENT Problem Stated Complaint: SOMETHING LODGED IN THROAT Time Seen by Provider: 02/15/20 00:32 Source of Information: Reports: Patient History Limitations: Reports: No Limitations - History of Present Illness INITIAL COMMENTS - FREE TEXT/NARRATIVE: This is a 74-year-old male. Apparently earlier this week Monday or Monday he was in [place] [facility] because he felt like he had something stuck his throat but they found that he had congestive heart failure and they thought he might have an infection so he believes they gave him some IV antibiotics and lasix. He was in the ER for about 8 hours and urinated a lot he says. He has been taking some amoxicillin since that time. States he still feels like something stuck in his throat and he says he has not been able to eat or drink anything though he is taking his amoxicillin. He does not remember eating or drinking anything and is not so much he cannot swallow it is that it hurts around his Pop's apple when he does swallow. He has not been drooling. He went to [facility] they said he had some white spots in the back of his throat but they did not do anything for him. Throat Pain Score (Numeric/FACES): 8 - Related Data Allergies Allergy/AdvReac Type Severity Reaction Status Date / Time atenolol Allergy Hives Verified 02/15/20 00:32 bee venom protein (honey bee) Allergy Rash Verified 02/15/20 00:32 insulin isophane (NPH) Allergy Cannot Verified 02/15/20 00:32 [From Novolin 70/30 U-100 Remember Insulin] insulin regular Allergy Cannot Verified 02/15/20 00:32 [From Novolin 70/30 U-100 Remember Insulin] latex Allergy Rash Verified 02/15/20 00:32 morphine Allergy Hives Verified 02/15/20 00:32 quinapril [From Accupril] Allergy Rash Verified 02/15/20 00:32 atorvastatin [From Lipitor] AdvReac Confusion Verified 02/15/20 00:32 levofloxacin AdvReac Hallucinati Verified 02/15/20 00:32 ons lisinopril AdvReac Confusion Verified 02/15/20 00:32 lorazepam [From Ativan] AdvReac Hallucinati Verified 02/15/20 00:32 ons omeprazole AdvReac Confusion Verified 02/15/20 00:32 terazosin AdvReac Hallucinati Verified 02/15/20 00:32 ons Home Meds: Home Meds Aspirin [Ecotrin EC] 325 mg PO DAILY 03/09/16 [History] Insulin Glargine,Hum.Rec.Anlog [Lantus Solostar] 70 units SQ BID 03/09/16 [History] Cholecalciferol (Vitamin D3) [Vitamin D3] 2,000 units PO DAILY 02/08/18 [History] Colestipol HCl 2 tab PO BID 02/08/18 [History] Finasteride [Proscar] 5 mg PO DAILY 02/08/18 [History] HCTZ/Triamterene [Maxzide 50-75 MG] 0.5 tab PO DAILY 02/08/18 [History] Ibuprofen 400 mg PO BID PRN 02/08/18 [History] Losartan [Cozaar] 50 mg PO DAILY 02/08/18 [History] Pantoprazole Sodium [Protonix] 40 mg PO DAILY 02/08/18 [History] Simvastatin [Zocor] 20 mg PO BEDTIME #20 tablet 02/09/18 [Rx] Albuterol Sulfate [Albuterol Sulfate Hfa] 2 puff INH Q4H PRN 05/02/19 [History] Alogliptin Benzoate [Alogliptin] 12.5 mg PO DAILY 05/02/19 [History] Apixaban [Eliquis] 5 mg PO BID 05/02/19 [History] Budesonide [Pulmicort] 1 puff INH BID 05/02/19 [History] Multivitamin [Multivitamins] 1 cap PO DAILY 05/02/19 [History] [place]-3/DHA/Epa/Fish Oil [[place]-3 Fish Oil 1,000 MG Sfgl] 1,000 mg PO DAILY 05/02/19 [History] Simvastatin 40 mg PO DAILY 05/02/19 [History] carvediloL [Carvedilol] 6.25 mg PO BID 05/02/19 [History] metFORMIN HCl [Metformin HCl] 1,000 mg PO BID 05/02/19 [History] Nystatin [Nystatin Oral Syringe] 500,000 unit PO QID #28 syringe 02/15/20 [Rx] Past Medical History HEENT History: Reports: Impaired Vision Cardiovascular History: Reports: Afib, CAD, Heart Failure, High Cholesterol, Hypertension, [place] Respiratory History: Reports: SOB Gastrointestinal History: Reports: Colon Polyp, GERD Genitourinary History: Reports: BPH, Chronic Renal Insuffiency Musculoskeletal History: Reports: Arthritis Psychiatric History: Reports: Anxiety Other Psychiatric History: has support persons to call when he needs help Endocrine/Metabolic History: Reports: Diabetes, Type II, Obesity/BMI 30+ - Infectious Disease History Infectious Disease History: Reports: Chicken Pox, Measles, Mumps - Past Surgical History HEENT Surgical History: Reports: Naso-Sinus Surgery Cardiovascular Surgical History: Reports: Other (See Below) Other Cardiovascular Surgeries/Procedures: sx for hole in his heart GI Surgical History: Reports: Appendectomy, Cholecystectomy, Colonoscopy, EGD Social & Family History - Family History Family Medical History: Noncontributory - Tobacco Use Smoking Status *Q: Never Smoker - Caffeine Use Caffeine Use: Reports: Coffee, Soda, Tea - Recreational Drug Use Recreational Drug Use: No - Living Situation & Occupation Living situation: Reports: , Alone Occupation: Employed ED ROS ENT - Review of Systems Review Of Systems: See Below Constitutional: Denies: Fever, Chills HEENT: Reports: Throat Pain. Denies: Throat Swelling Respiratory: Denies: Shortness of Breath, Cough Cardiovascular: Reports: Other (History of recent congestive heart failure) Endocrine: Reports: No Symptoms GI/Abdominal: Denies: Abdominal Pain, Nausea, Vomiting : Reports: No Symptoms Musculoskeletal: Reports: No Symptoms Skin: Reports: No Symptoms Neurological: Reports: No Symptoms Psychiatric: Reports: No Symptoms Hematologic/Lymphatic: Reports: No Symptoms ED EXAM, ENT - Physical Exam Exam: See Below Exam Limited By: No Limitations General Appearance: Alert, WD/WN, No Apparent Distress Eye Exam: Bilateral Eye: Normal Inspection Ears: Normal External Exam Nose: Normal Inspection Mouth/Throat: Normal Inspection, Normal Gums, Normal Lips, Other (He has some white spots in the soft palate over the uvula and in the posterior oropharynx suggestive of a Norma infection with some erythema and redness around the white spots.) Head: Normocephalic Neck: Supple Respiratory/Chest: No Respiratory Distress, Lungs Clear, Normal Breath Sounds Cardiovascular: Regular Rate, Rhythm, No Murmur GI/Abdominal: Soft Back: Full Range of Motion Extremities: Normal Inspection, Normal Range of Motion Neurological: Alert, Oriented Psychiatric: Other (He was somewhat argumentative and uncooperative with the nurses when he first arrived, he was however cooperative with me.) Skin: Warm, Dry Course - Vital Signs Last Recorded V/S: Last Vital Signs Temp 97.2 F 02/15/20 00:32 Pulse 71 02/15/20 00:32 Resp 15 02/15/20 00:32 BP 157/93 H 02/15/20 00:32 Pulse Ox 97 02/15/20 00:32 - Orders/Labs/Meds Meds: Medications Discontinued Medications Generic Name Dose Route Start Last Admin Trade Name Freq PRN Reason Stop Dose Admin Al Hydroxide/Mg Hydroxide 30 0 ml 02/15/20 00:49 02/15/20 00:54 ml/ Lidocaine HCl 15 ml PO 02/15/20 00:50 45 ml ONETIME ONE Administration - Re-Assessments/Exams Free Text/Narrative Re-Assessment/Exam: 02/15/20 01:26 The patient was able to drink the GI cocktail and he says it makes him feel like he is breathing better. That real sharp pain at the Pop's apple is now just dull and he is able to swallow much better as well. I do believe that he has a candidal infection in the oropharynx and possibly the esophagus. Will place him on nystatin suspension to swish and swallow 4 times a day. Departure - Departure Time of Disposition: 01:29 Disposition: Home, Self-Care 01 Condition: Fair Clinical Impression: Oropharyngeal candidiasis, Esophageal candidiasis - Discharge Information *PRESCRIPTION DRUG MONITORING PROGRAM REVIEWED*: Not Applicable *COPY OF PRESCRIPTION DRUG MONITORING REPORT IN PATIENT MARY ANNE: Not Applicable Prescriptions: Nystatin [Nystatin Oral Syringe] 500,000 unit PO QID #28 syringe Instructions: Oral Thrush, Adult, [id number] Referrals: PCP,None [Primary Care Provider] - Forms: ED Department Discharge Additional Instructions: Get the nystatin oral syringes, it is 1 syringe or 5 mL that you swish and swallow 4 times a day for 7 days, you need to follow-up with your doctor later this week for recheck to make sure it is going away, in the meantime stop the amoxicillin, drink fluids but nothing that is salty or has citrus or has carbonation, avoid all sugar while you are doing this treatment, return to the ER if needed Sepsis Event Note (ED) - Evaluation Sepsis Screening Result: No Definite Risk - Focused Exam Vital Signs: Vital Signs Temp Pulse Resp BP Pulse Ox 02/15/20 00:32 97.2 F 71 15 157/93 H 97
[2020-02-15] MEDS ORDERED: Nystatin Susp 100,000 Unit/ML 5 ML Oral Syringe PO ONE (01:32)
== END 2020-02-15 01:45 | disposition home or self-care (01) ==
LOC: JD.ED 00:26
DX: B37.0 Candidal stomatitis (principal); B37.81 Candidal esophagitis; I12.9 Hypertensive chronic kidney disease with stage 1 through stage 4 chronic kidney disease, or unspecified chronic kidney disease; E11.22 Type 2 diabetes mellitus with diabetic chronic kidney disease; I50.9 Heart failure, unspecified; N18.9 Chronic kidney disease, unspecified; E78.00 Pure hypercholesterolemia, unspecified; E66.9 Obesity, unspecified; I48.91 Unspecified atrial fibrillation; I25.2 Old myocardial infarction; K21.9 Gastro-esophageal reflux disease without esophagitis; Z68.31 Body mass index [BMI] 31.0-31.9, adult; Z88.8 Allergy status to other drugs, medicaments and biological substances; Z88.5 Allergy status to narcotic agent; Z88.1 Allergy status to other antibiotic agents; Z91.030 Bee allergy status; Z91.040 Latex allergy status; Z79.4 Long term (current) use of insulin; Z79.899 Other long term (current) drug therapy; Z90.49 Acquired absence of other specified parts of digestive tract
CPT/HCPCS: 99283; A9270

== ENCOUNTER 2020-03-22 15:23 | Emergency (ER) | payer OTHER, MEDICARE ==
--- NOTE | 2020-03-22 16:09 | EDM.PDOC ---
ED HPI GENERAL MEDICAL PROBLEM - General Chief Complaint: Respiratory Problem Stated Complaint: COVID + SOB Time Seen by Provider: 03/22/20 15:59 - History of Present Illness INITIAL COMMENTS - FREE TEXT/NARRATIVE: 74-year-old male presents to the emergency room with worsening shortness of breath and is cold and positive. Patient has a long history of congestive heart failure. He was diagnosed with COVID he cannot tell me when. He just finished up a 5-day course of Remdesivir in [place]. The patient has a significant history of congestive heart failure and has had bypass surgery. He is treated for hypertension hyperlipidemia he is on Eliquis for A. fib. And has had an OH in the past. And he has type 2 diabetes. Abdomen Pain Score (Numeric/FACES): 5 - Related Data Allergies Allergy/AdvReac Type Severity Reaction Status Date / Time atenolol Allergy Hives Verified 03/22/20 15:54 bee venom protein (honey bee) Allergy Rash Verified 03/22/20 15:54 insulin isophane (NPH) Allergy Cannot Verified 03/22/20 15:54 [From Novolin 70/30 U-100 Remember Insulin] insulin regular Allergy Cannot Verified 03/22/20 15:54 [From Novolin 70/30 U-100 Remember Insulin] latex Allergy Rash Verified 03/22/20 15:54 morphine Allergy Hives Verified 03/22/20 15:54 quinapril [From Accupril] Allergy Rash Verified 03/22/20 15:54 atorvastatin [From Lipitor] AdvReac Confusion Verified 03/22/20 15:54 levofloxacin AdvReac Hallucinati Verified 03/22/20 15:54 ons lisinopril AdvReac Confusion Verified 03/22/20 15:54 lorazepam [From Ativan] AdvReac Hallucinati Verified 03/22/20 15:54 ons omeprazole AdvReac Confusion Verified 03/22/20 15:54 terazosin AdvReac Hallucinati Verified 03/22/20 15:54 ons Home Meds: Home Meds Aspirin [Ecotrin EC] 325 mg PO DAILY 03/09/16 [History] Insulin Glargine,Hum.Rec.Anlog [Lantus Solostar] 70 units SQ BID 03/09/16 [History] Cholecalciferol (Vitamin D3) [Vitamin D3] 2,000 units PO DAILY 02/08/18 [History] Colestipol HCl 2 tab PO BID 02/08/18 [History] Finasteride [Proscar] 5 mg PO DAILY 02/08/18 [History] HCTZ/Triamterene [Maxzide 50-75 MG] 0.5 tab PO DAILY 02/08/18 [History] Ibuprofen 400 mg PO BID PRN 02/08/18 [History] Losartan [Cozaar] 50 mg PO DAILY 02/08/18 [History] Pantoprazole Sodium [Protonix] 40 mg PO DAILY 02/08/18 [History] Simvastatin [Zocor] 20 mg PO BEDTIME #20 tablet 02/09/18 [Rx] Albuterol Sulfate [Albuterol Sulfate Hfa] 2 puff INH Q4H PRN 05/02/19 [History] Alogliptin Benzoate [Alogliptin] 12.5 mg PO DAILY 05/02/19 [History] Apixaban [Eliquis] 5 mg PO BID 05/02/19 [History] Budesonide [Pulmicort] 1 puff INH BID 05/02/19 [History] Multivitamin [Multivitamins] 1 cap PO DAILY 05/02/19 [History] Flinton-3/DHA/Epa/Fish Oil [Flinton-3 Fish Oil 1,000 MG Sfgl] 1,000 mg PO DAILY 05/02/19 [History] Simvastatin 40 mg PO DAILY 05/02/19 [History] carvediloL [Carvedilol] 6.25 mg PO BID 05/02/19 [History] metFORMIN HCl [Metformin HCl] 1,000 mg PO BID 05/02/19 [History] Nystatin [Nystatin Oral Syringe] 500,000 unit PO QID #28 syringe 02/15/20 [Rx] Past Medical History HEENT History: Reports: Impaired Vision Cardiovascular History: Reports: Afib, CAD, Heart Failure, High Cholesterol, Hypertension, OH Respiratory History: Reports: SOB Gastrointestinal History: Reports: Colon Polyp, GERD Genitourinary History: Reports: BPH, Chronic Renal Insuffiency Musculoskeletal History: Reports: Arthritis Psychiatric History: Reports: Anxiety Other Psychiatric History: has support persons to call when he needs help Endocrine/Metabolic History: Reports: Diabetes, Type II, Obesity/BMI 30+ - Infectious Disease History Infectious Disease History: Reports: Novel Coronavirus - Past Surgical History HEENT Surgical History: Reports: Naso-Sinus Surgery Cardiovascular Surgical History: Reports: Other (See Below) Other Cardiovascular Surgeries/Procedures: sx for hole in his heart GI Surgical History: Reports: Appendectomy, Cholecystectomy, Colonoscopy, EGD Social & Family History - Family History Family Medical History: Noncontributory - Tobacco Use Tobacco Use Status *Q: Never Tobacco User Second Hand Smoke Exposure: No - Caffeine Use Caffeine Use: Reports: None - Recreational Drug Use Recreational Drug Use: No - Living Situation & Occupation Living situation: Reports: , Alone Occupation: Employed ED ROS GENERAL - Review of Systems Review Of Systems: See Below Constitutional: Reports: No Symptoms HEENT: Reports: No Symptoms Respiratory: Reports: Cough, Other (He has a hard time describing his chest discomfort but leans more towards congestion but says it is uncomfortable) Cardiovascular: Reports: Chest Pain, Edema (He has some mild edema this is pretty good for him according to the patient) GI/Abdominal: Reports: No Symptoms : Reports: No Symptoms Musculoskeletal: Reports: No Symptoms Neurological: Reports: No Symptoms Psychiatric: Reports: No Symptoms ED EXAM, GENERAL - Physical Exam Exam: See Below Exam Limited By: No Limitations General Appearance: Alert, No Apparent Distress, Other (His blood pressures come down nicely from his initial blood pressure to now) Eye Exam: Bilateral Eye: Normal Inspection Ears: Normal External Exam, Normal Canal, Hearing Grossly Normal, Normal TMs Nose: Normal Inspection, Normal Mucosa, No Blood Throat/Mouth: Normal Inspection, Normal Lips, Normal Gums, Normal Oropharynx, Normal Voice, No Airway Compromise Head: Atraumatic, Normocephalic Neck: Normal Inspection, Supple, Non-Tender, Full Range of Motion. No: Lymphade nopathy (L), Lymphadenopathy (R) Respiratory/Chest: No Respiratory Distress, Lungs Clear, Normal Breath Sounds Cardiovascular: Regular Rate, Rhythm, No Edema, No Murmur GI/Abdominal: Normal Bowel Sounds, Soft, Non-Tender, Other (Obese) Back Exam: Normal Inspection. No: CVA Tenderness (L), CVA Tenderness (R) Extremities: Normal Inspection, Normal Range of Motion, Non-Tender Neurological: Alert, Oriented Skin Exam: Warm, Dry, Intact Course - Vital Signs Last Recorded V/S: Last Vital Signs Temp 36.6 C 03/22/20 15:47 Pulse 82 03/22/20 15:47 Resp 20 03/22/20 15:47 BP 187/97 H 03/22/20 15:47 Pulse Ox 95 03/22/20 15:47 - Orders/Labs/Meds Orders: Active Orders 24 hr Category Date Time Status EKG Documentation Completion [RC] STAT Care 03/22/20 16:57 Active Chest 1V Frontal [CR] Stat Exams 03/22/20 16:21 Taken Labs: Laboratory Tests 03/22/20 03/22/20 03/22/20 Range/Units 16:15 16:15 16:35 WBC (4.23-9.07) K/mm3 RBC (4.63-6.08) M/mm3 Hgb (13.7-17.5) gm/dl Hct (40.1-51.0) % MCV (79.0-92.2) fl MCH (25.7-32.2) pg MCHC (32.2-35.5) g/dl RDW Std Deviation (35.1-43.9) fL Plt Count (163-337) K/mm3 MPV (9.4-12.3) fl Neutrophils % (Manual) (40-60) % Band Neutrophils % (0-10) % Lymphocytes % (Manual) (20-40) % Atypical Lymphs % % Monocytes % (Manual) (2-10) % Eosinophils % (Manual) (0.8-7.0) % Basophils % (Manual) (0.2-1.2) Platelet Estimate RBC Morph Comment PT (9.7-11.7) SECONDS INR APTT (22-31) SECONDS D-Dimer, Quantitative (0.19-0.50) mg/L Sodium (136-145) mEq/L Potassium (3.5-5.1) mEq/L Chloride (98-107) mEq/L Carbon Dioxide (21-32) mEq/L Anion Gap (5-15) BUN (7-18) mg/dL Creatinine (0.7-1.3) mg/dL Est Cr Clr Drug Dosing mL/min Estimated GFR (MDRD) (>60) mL/min BUN/Creatinine Ratio (14-18) Glucose (83-115) mg/dL Calcium (8.5-10.1) mg/dL Ferritin 229 (26-388) ng/ml Total Bilirubin (0.2-1.0) mg/dL AST (15-37) U/L ALT (16-63) U/L Alkaline Phosphatase (46-116) U/L Lactate Dehydrogenase (85-227) U/L Troponin I (0.00-0.056) ng/mL C-Reactive Protein (<1.0) mg/dL NT-Pro-B Natriuret Pep 459 H (0-125) pg/mL Total Protein (6.4-8.2) g/dl Albumin (3.4-5.0) g/dl Globulin gm/dL Albumin/Globulin Ratio (1-2) Urine Color Yellow (Yellow) Urine Appearance Clear (Clear) Urine pH 8.0 (5.0-8.0) Ur Specific [place] 1.020 (1.005-1.030) Urine Protein Trace H (Negative) Urine Glucose (UA) Negative (Negative) Urine Ketones Negative (Negative) Urine Occult Blood Negative (Negative) Urine Nitrite Negative (Negative) Urine Bilirubin Negative (Negative) Urine Urobilinogen 0.2 (0.2-1.0) Ur Leukocyte Esterase Negative (Negative) Urine RBC 0-5 (0-5) /hpf Urine WBC 0-5 (0-5) /hpf Ur Squamous Epith Cells 0-5 (0-5) /hpf Urine Bacteria Few (FEW) /hpf Urine Mucus Few (FEW) /hpf 03/22/20 03/22/20 03/22/20 Range/Units 16:50 16:50 16:50 WBC 10.73 H (4.23-9.07) K/mm3 RBC 5.39 (4.63-6.08) M/mm3 Hgb 15.4 D (13.7-17.5) gm/dl Hct 46.5 (40.1-51.0) % MCV 86.3 (79.0-92.2) fl MCH 28.6 (25.7-32.2) pg MCHC 33.1 (32.2-35.5) g/dl RDW Std Deviation 47.4 H (35.1-43.9) fL Plt Count 150 L (163-337) K/mm3 MPV 11.6 (9.4-12.3) fl Neutrophils % (Manual) 82 H (40-60) % Band Neutrophils % 0 (0-10) % Lymphocytes % (Manual) 8 L (20-40) % Atypical Lymphs % 0 % Monocytes % (Manual) 9 (2-10) % Eosinophils % (Manual) 1 (0.8-7.0) % Basophils % (Manual) 0 L (0.2-1.2) Platelet Estimate Adequate RBC Morph Comment Normal PT 11.4 (9.7-11.7) SECONDS INR 1.07 APTT 27 (22-31) SECONDS D-Dimer, Quantitative 0.27 (0.19-0.50) mg/L Sodium 137 (136-145) mEq/L Potassium 4.3 (3.5-5.1) mEq/L Chloride 100 (98-107) mEq/L Carbon Dioxide 29 (21-32) mEq/L Anion Gap 12.3 (5-15) BUN 24 H (7-18) mg/dL Creatinine 1.7 H (0.7-1.3) mg/dL Est Cr Clr Drug Dosing 44.39 mL/min Estimated GFR (MDRD) 40 (>60) mL/min BUN/Creatinine Ratio 14.1 (14-18) Glucose 136 H (83-115) mg/dL Calcium 10.4 H (8.5-10.1) mg/dL Ferritin (26-388) ng/ml Total Bilirubin 1.1 H (0.2-1.0) mg/dL AST 17 (15-37) U/L ALT 34 (16-63) U/L Alkaline Phosphatase 67 (46-116) U/L Lactate Dehydrogenase 161 (85-227) U/L Troponin I < 0.017 (0.00-0.056) ng/mL C-Reactive Protein 7.5 H* (<1.0) mg/dL NT-Pro-B Natriuret Pep (0-125) pg/mL Total Protein 6.6 (6.4-8.2) g/dl Albumin 3.2 L (3.4-5.0) g/dl Globulin 3.4 gm/dL Albumin/Globulin Ratio 0.9 L (1-2) Urine Color (Yellow) Urine Appearance (Clear) Urine pH (5.0-8.0) Ur Specific Oden (1.005-1.030) Urine Protein (Negative) Urine Glucose (UA) (Negative) Urine Ketones (Negative) Urine Occult Blood (Negative) Urine Nitrite (Negative) Urine Bilirubin (Negative) Urine Urobilinogen (0.2-1.0) Ur Leukocyte Esterase (Negative) Urine RBC (0-5) /hpf Urine WBC (0-5) /hpf Ur Squamous Epith Cells (0-5) /hpf Urine Bacteria (FEW) /hpf Urine Mucus (FEW) /hpf - Radiology Interpretation Free Text/Narrative:: The patient is insistent on going home. His labs are fairly assuring his C- reactive protein is elevated ferritin is normal troponin normal d-dimer normal. Chest x-ray does not show any acute process. I discussed situation with the apparently the patient has a follow-up appointment tomorrow where he has been treated. At the patient's request we will let him go home. The patient has a renal insufficiency suspect from diuretic therapy. I not sure what his baseline is. Departure - Departure Time of Disposition: 18:39 Disposition: Home, Self-Care 01 Clinical Impression: COVID-19 - Discharge Information Referrals: PCP,None [Primary Care Provider] - Forms: ED Department Discharge Additional Instructions: Return to the emergency room with any questions problems or worsening symptoms. Follow-up in the clinic tomorrow as scheduled. Use Tylenol as needed for discomfort. Sepsis Event Note (ED) - Evaluation Sepsis Screening Result: No Definite Risk - Focused Exam Vital Signs: Vital Signs Temp Pulse Resp BP Pulse Ox 03/22/20 15:47 36.6 C 82 20 187/97 H 95 - My Orders Last 24 Hours: My Active Orders 03/22/20 16:21 Chest 1V Frontal [CR] Stat 03/22/20 16:57 EKG Documentation Completion [RC] STAT - Assessment/Plan Last 24 Hours: My Active Orders 03/22/20 16:21 Chest 1V Frontal [CR] Stat 03/22/20 16:57 EKG Documentation Completion [RC] STAT
[2020-03-22 19:02] VITALS: BP 142/78; PULSE 86
== END 2020-03-22 18:50 | disposition home or self-care (01) ==
LOC: JD.ED 15:23
DX: U07.1 COVID-19 (principal); I48.91 Unspecified atrial fibrillation; I25.10 Atherosclerotic heart disease of native coronary artery without angina pectoris; E78.00 Pure hypercholesterolemia, unspecified; I13.0 Hypertensive heart and chronic kidney disease with heart failure and stage 1 through stage 4 chronic kidney disease, or unspecified chronic kidney disease; I50.9 Heart failure, unspecified; N18.9 Chronic kidney disease, unspecified; I25.2 Old myocardial infarction; E11.22 Type 2 diabetes mellitus with diabetic chronic kidney disease; M19.90 Unspecified osteoarthritis, unspecified site; K21.9 Gastro-esophageal reflux disease without esophagitis; E66.9 Obesity, unspecified; Z68.31 Body mass index [BMI] 31.0-31.9, adult; Z88.8 Allergy status to other drugs, medicaments and biological substances; Z91.030 Bee allergy status; Z91.040 Latex allergy status; Z88.5 Allergy status to narcotic agent; Z88.1 Allergy status to other antibiotic agents; Z79.82 Long term (current) use of aspirin; Z79.4 Long term (current) use of insulin; Z79.01 Long term (current) use of anticoagulants; Z79.899 Other long term (current) drug therapy
CPT/HCPCS: 36415; 71045; 80053; 81001; 82728; 83615; 83880; 84484; 85007; 85027; 85379; 85610; 85730; 86140; 93005; 93010; 99282; 99285-25

== ENCOUNTER 2025-03-21 13:42 | Emergency (ER) | payer MEDICARE, OTHER ==
[2025-03-21] MEDS ORDERED: Sodium Chloride 0.9% 10 ML Syringe FLUSH PRN (13:56)
[2025-03-21] MEDS ORDERED: Naloxone 0.4 MG/ML SDV IVPUSH PRN (14:05)
[2025-03-21 14:08] LABS: BASOPHILS ABSOLUTE AUTO 0.1 K/mm3 (0.0-0.2); BASOPHILS PERCENT AUTO 0.6 % (0.0-1.0); EOSINOPHILS ABSOLUTE AUTO 0.1 K/mm3 (0.0-0.4); EOSINOPHILS PERCENT AUTO 0.6 % (0.0-6.0); IMMATURE GRAN ABSOLUTE AUTO 0.05 K/mm3 (0.00-0.05); IMMATURE GRAN PERCENT AUTO 0.5 % (0.0-0.4); LYMPHOCYTES ABSOLUTE AUTO 1.7 K/mm3 (1.0-4.8); LYMPHOCYTES PERCENT AUTO 15.3 % (24.0-44.0); MEAN PLATELET VOLUME 12.0 fl (9.4-12.4); MONOCYTES ABSOLUTE AUTO 0.6 K/mm3 (0.0-0.8); MONOCYTES PERCENT AUTO 5.7 % (0.0-8.0); NEUTROPHILS ABSOLUTE AUTO 8.4 K/mm3 (1.8-7.7); NEUTROPHILS PERCENT AUTO 77.3 % (41.0-71.0); NRBC ABSOLUTE 0.00 (0.00-0.02); NRBC PERCENT 0.0 % (0.0-0.2); PLATELET COUNT,PLT 136 K/mm3 (150-400); RED BLOOD CELL COUNT 5.86 M/mm3 (4.52-5.90); WHITE BLOOD CELL COUNT,WBC 10.82 K/mm3 (3.9-11.3)
[2025-03-21 14:38] LABS: A/G RATIO 1.0 (1-2); ALANINE AMINOTRANSFERASE,ALT 31.0 U/L (16-63); ASPARTATE AMNIOTRANSFERASE,AST 18.0 U/L (15-37); BILIRUBIN TOTAL 0.9 mg/dL (0.2-1.0); BLOOD UREA NITROGEN,BUN 20.0 mg/dL (7-18); CARBON DIOXIDE,CO2 25.0 mEq/L (21-32); CHLORIDE,CL 102.0 mEq/L (98-107); CREATININE 1.5 mg/dL (0.7-1.3); EST CRCL DRUG DOSING (CG) 46.61 mL/min; ESTIMATED GFR 48.0 mL/min (>60); GLUCOSE RANDOM 354.0 mg/dL (70-99); POTASSIUM,K 4.5 mEq/L (3.5-5.1); PROTEIN TOTAL,TP 6.5 g/dl (6.4-8.2); SODIUM,NA 136.0 mEq/L (136-145)
[2025-03-21 14:43] LABS: TROPONIN I HIGH SENSITIVITY 82.0 pg/mL (<=76)
[2025-03-21 16:22] VITALS: BP 137/95; PULSE 72
== END 2025-03-21 15:20 | disposition left against medical advice (07) ==
LOC: JD.ED 13:42
DX: R07.9 Chest pain, unspecified (principal); R06.02 Shortness of breath; I11.0 Hypertensive heart disease with heart failure; E78.00 Pure hypercholesterolemia, unspecified; I25.10 Atherosclerotic heart disease of native coronary artery without angina pectoris; I48.91 Unspecified atrial fibrillation; K21.9 Gastro-esophageal reflux disease without esophagitis; E11.9 Type 2 diabetes mellitus without complications; Z88.8 Allergy status to other drugs, medicaments and biological substances; Z79.4 Long term (current) use of insulin; Z79.899 Other long term (current) drug therapy; Z79.84 Long term (current) use of oral hypoglycemic drugs; Z86.16 Personal history of COVID-19; Z90.49 Acquired absence of other specified parts of digestive tract
CPT/HCPCS: 36415; 71045; 80053; 83735; 83880; 84484; 85025; 93005; 99285; A9270; 93010; 99284

== ENCOUNTER 2025-05-13 03:12 | Emergency (ER) | payer OTHER ==
[2025-05-13 03:38] LABS: BASOPHILS ABSOLUTE AUTO 0.1 K/mm3 (0.0-0.2); BASOPHILS PERCENT AUTO 0.7 % (0.0-1.0); EOSINOPHILS ABSOLUTE AUTO 0.2 K/mm3 (0.0-0.4); EOSINOPHILS PERCENT AUTO 1.7 % (0.0-6.0); IMMATURE GRAN ABSOLUTE AUTO 0.07 K/mm3 (0.00-0.05); IMMATURE GRAN PERCENT AUTO 0.7 % (0.0-0.4); LYMPHOCYTES ABSOLUTE AUTO 1.6 K/mm3 (1.0-4.8); LYMPHOCYTES PERCENT AUTO 16.3 % (24.0-44.0); MEAN PLATELET VOLUME 11.7 fl (9.4-12.4); MONOCYTES ABSOLUTE AUTO 0.6 K/mm3 (0.0-0.8); MONOCYTES PERCENT AUTO 6.3 % (0.0-8.0); NEUTROPHILS ABSOLUTE AUTO 7.3 K/mm3 (1.8-7.7); NEUTROPHILS PERCENT AUTO 74.3 % (41.0-71.0); NRBC ABSOLUTE 0.02 (0.00-0.02); NRBC PERCENT 0.2 % (0.0-0.2); PLATELET COUNT,PLT 129 K/mm3 (150-400); RED BLOOD CELL COUNT 5.50 M/mm3 (4.52-5.90); WHITE BLOOD CELL COUNT,WBC 9.79 K/mm3 (3.9-11.3)
[2025-05-13 03:45] LABS: APPEARANCE,URINE CLEAR (Clear); GLUCOSE,URINE 2+ (Negative); OCCULT BLOOD,URINE TRACE-INTACT (Negative)
[2025-05-13 03:54] LABS: BUPRENORPHINE SCREEN,URINE NEGATIVE (CUTOFF=10); METHADONE SCREEN, URINE NEGATIVE (CUT0FF=200); METHAMPHETAMINES SCREEN, URINE NEGATIVE (CUTOFF=500); OXYCODONE SCREEN,URINE NEGATIVE (CUT0FF=100); THC SCREEN,URINE 20 NG/ML NEGATIVE (CUTOFF=50)
[2025-05-13 03:56] LABS: EPITHELIAL CELLS,URINE NOT SEEN /hpf (0-5)
[2025-05-13 03:57] LABS: YEAST BUDDING,URINE RARE (NOT SEEN)
[2025-05-13 04:02] LABS: A/G RATIO 1.0 (1-2); ALANINE AMINOTRANSFERASE,ALT 23.0 U/L (16-63); ASPARTATE AMNIOTRANSFERASE,AST 12.0 U/L (15-37); BILIRUBIN TOTAL 0.6 mg/dL (0.2-1.0); BLOOD UREA NITROGEN,BUN 20.0 mg/dL (7-18); CARBON DIOXIDE,CO2 24.0 mEq/L (21-32); CHLORIDE,CL 100.0 mEq/L (98-107); CREATININE 1.5 mg/dL (0.7-1.3); EST CRCL DRUG DOSING (CG) 46.61 mL/min; ESTIMATED GFR 48.0 mL/min (>60); POTASSIUM,K 4.4 mEq/L (3.5-5.1); PROTEIN TOTAL,TP 6.3 g/dl (6.4-8.2); SODIUM,NA 133.0 mEq/L (136-145)
[2025-05-13 04:11] LABS: ETHANOL BLOOD MEDICAL 0.0 gm% (0.00); GLUCOSE RANDOM 474.0 mg/dL (70-99); TROPONIN I HIGH SENSITIVITY 118.0 pg/mL (<=76)
[2025-05-13 04:12] LABS: AMPHETAMINES SCREEN, URINE NEGATIVE (CUTOFF=500)
[2025-05-13] MEDS: Insulin Lispro 100 Unit/ML 3 ML KwikPen SUBCUT ONE (05:33)
[2025-05-13] MEDS: Magnesium Sulfat/D5W 1GM/100ML 1 GM in Premix Bag 1 BAG IV ONE (06:48)
[2025-05-13] MEDS: Furosemide 40 MG/4 ML VIAL IVPUSH ONE (06:48)
[2025-05-13 09:43] VITALS: BP 166/79; PULSE 79
== END 2025-05-13 08:45 | disposition home or self-care (01) ==
LOC: JD.ED 03:12
DX: I13.0 Hypertensive heart and chronic kidney disease with heart failure and stage 1 through stage 4 chronic kidney disease, or unspecified chronic kidney disease (principal); I50.9 Heart failure, unspecified; N18.9 Chronic kidney disease, unspecified; I25.10 Atherosclerotic heart disease of native coronary artery without angina pectoris; I48.91 Unspecified atrial fibrillation; K21.9 Gastro-esophageal reflux disease without esophagitis; E11.22 Type 2 diabetes mellitus with diabetic chronic kidney disease; Z91.030 Bee allergy status; Z88.8 Allergy status to other drugs, medicaments and biological substances; Z88.5 Allergy status to narcotic agent; Z79.82 Long term (current) use of aspirin; Z79.899 Other long term (current) drug therapy; Z79.01 Long term (current) use of anticoagulants; Z79.84 Long term (current) use of oral hypoglycemic drugs; Z86.16 Personal history of COVID-19
CPT/HCPCS: 36415; 71045; 80053; 80306; 80307; 81001; 82947; 83735; 83880; 84484; 85025; 93005; 96365; 96375; 99285; A9270; J1815; J1938; J3475; 93010